=== PATIENT | male | born 1950 ===

== ENCOUNTER 2017-02-13 04:56 | Inpatient (IN) | payer MEDICARE, OTHER ==
--- NOTE | 2017-02-13 05:07 | C.PDOC ---
History Of Present Illness Patient was brought in via EMS after he was found unresponsive in his home. EMS found him with 4 respirations per minute; 2ml intranasal narcan was administered in the field with good response. Patient denies any drug use or physical complaints at this time. Time Seen by Provider: 02/13/17 05:02 Chief Complaint (Nursing): Substance Abuse History Per: EMS History/Exam Limitations: no limitations Onset/Duration Of Symptoms: Hrs Current Symptoms Are (Timing): Still Present Suicide/Self Injury Attempted (Context): None Modifying Factor(s): None Associated Symptoms: denies: Depression, Suicidal Thoughts, Suicidal Plan Involuntary Hold By: None Recent travel outside of the [place]: No Past Medical History Reviewed: Historical Data, Nursing Documentation, Vital Signs Vital Signs: Last Vital Signs Temp 98 F 02/13/17 05:06 Pulse 90 02/13/17 05:06 Resp 18 02/13/17 05:06 BP 130/73 02/13/17 05:06 Pulse Ox 100 02/13/17 06:35 - Medical History PMH: Back Problems, Bronchitis, Fibromyalgia Surgical History: No Surg Hx Family History: States: No Known Family Hx - Social History Hx Alcohol Use: No Hx Substance Use: No - Immunization History Hx Tetanus Toxoid Vaccination: No Hx Influenza Vaccination: No Hx Pneumococcal Vaccination: No Review Of Systems Constitutional: Negative for: Fever, Chills Gastrointestinal: Negative for: Nausea, Vomiting, Diarrhea Physical Exam - Physical Exam Appears: Non-toxic Skin: Warm, Dry Oral Mucosa: Moist Chest: Symmetrical, No Tenderness Cardiovascular: Rhythm Regular, No Murmur Respiratory: No Rales, No Rhonchi, No Wheezing Gastrointestinal/Abdominal: Soft, No Tenderness Neurological/Psych: Oriented x3 ED Course And Treatment - Laboratory Results Result Diagrams: 02/13/17 05:28 02/13/17 05:28 ECG: Interpreted By Me, Viewed By Me ECG Rhythm: Sinus Rhythm (66), 1st Degree HB, Nonspecific Changes O2 Sat by Pulse Oximetry: 100 Pulse Ox Interpretation: Normal - Radiology CXR: Interpreted by Me, Viewed By Me CXR Interpretation: No: Infiltrates, Fracture, Pnemothorax Disposition Discussed With : Zoe Georges Comment: accepted the pt on her service and took over the care at 6:32 AM Doctor Will See Patient In The: Hospital Counseled Patient/Family Regarding: Studies Performed, Diagnosis - Disposition Referrals: Non [facility]PH Provider, [Primary Care Provider] - Disposition: HOSPITALIZED Disposition Time: 06:33 Condition: FAIR Forms: [facility] (Icelandic) - POA Present On Arrival: None - Clinical Impression Clinical Impression: Syncope, Drug reaction, Arrhythmia - Scribe Statement The provider has reviewed the documentation as recorded by the Scribe Raheel Salinas All medical record entries made by the Scribe were at my direction and personally dictated by me. I have reviewed the chart and agree that the record accurately reflects my personal performance of the history, physical exam, medical decision making, and the department course for this patient. I have also personally directed, reviewed, and agree with the discharge instructions and disposition. Decision To Admit - Pt Status Changed To: Hospital Disposition Of: Inpatient - Admit Certification Admit to Inpatient:: After my assessment, the patient will require hospitalization for at least two midnights. This is because of the severity of symptoms shown, intensity of services needed, and/or the medical risk in this patient being treated as an outpatient. - InPatient: Physician Admission Certification: I certify that this patient requires 2 or more midnights of care for the following reason:: After my assessment, the patient will require hospitalization for at least two midnights. This is because of the severity of symptoms shown, intensity of services needed, and/or the medical risk in this patient being treated as an outpatient. - . Bed Request Type: Telemetry Admitting Physician: Zoe Georges Patient Diagnosis: Syncope, Drug reaction, Arrhythmia
[2017-02-13 05:33] LABS: BASO % 0.5 % (0.0-2.0); EOS # 0.1 K/uL (0.0-0.7); EOS % 1.4 % (0.0-4.0); HEMOGLOBIN 12.1 g/dL (12.0-18.0); LYMPH # 1.3 K/uL (1.0-4.3); LYMPH % 23.6 % (20.0-40.0); MEAN CELL VOLUME 90.8 fL (80.0-94.0); MEAN CORPUSCULAR HEMOGLOBIN 30.2 pg (27.0-31.0); MEAN CORPUSCULAR HGB CONC 33.3 g/dL (33.0-37.0); MEAN PLATELET VOLUME 7.5 fL (7.2-11.7); MONO # 0.5 K/uL (0.0-0.8); MONO % 10.3 % (0.0-10.0); NEUT # 3.4 K/uL (1.8-7.0); NEUT % 64.2 % (50.0-75.0); RBC 4.02 Mil/uL (4.40-5.90); RED CELL DISTRIBUTION WIDTH 12.6 % (11.5-14.5); WHITE BLOOD COUNT 5.3 K/uL (4.8-10.8)
[2017-02-13 05:38] LABS: BENZODIAZEPINES, UR NEGATIVE (NEGATIVE)
[2017-02-13 05:39] LABS: BARBITURATES, UR NEGATIVE (NEGATIVE)
[2017-02-13 05:42] LABS: OPIATES, UR NEGATIVE (NEGATIVE); PHENCYCLIDINE, UR NEGATIVE (NEGATIVE)
[2017-02-13 05:45] LABS: ALBUMIN 3.9 g/dL (3.5-5.0)
[2017-02-13 05:47] LABS: GFR AFRICAN-AMERICAN > 60; GFR NON-AFRICAN AMERICAN > 60
[2017-02-13 05:48] LABS: ALB/GLOB RATIO 1.4 (1.0-2.1); ALT/SGPT 27 U/L (21-72); AST/SGOT 14 U/L (17-59); BLOOD UREA NITROGEN 17 mg/dL (9-20); CALCIUM 8.1 mg/dl (8.6-10.4)
[2017-02-13 06:56] LABS: B-TYPE NATRIURETIC PEPTIDE 39.1 pg/mL (0-900)
--- NOTE | 2017-02-13 07:01 | CT ---
EXAM: CT Head Without Intravenous Contrast CLINICAL HISTORY: 66 years old, male; Pain; Headache; Additional info: Syncope TECHNIQUE: Axial computed tomography images of the head/brain without intravenous contrast. This CT exam was performed using one or more of the following dose reduction techniques: automated exposure control, adjustment of the mA and/or kV according to patient size, and/or use of iterative reconstruction technique. COMPARISON: No relevant prior studies available. FINDINGS: Brain: Mild atrophy. No intracranial hemorrhage. No mass. No definite edema. Ventricles: No hydrocephalus. Bones/joints: No acute fracture. Soft tissues: Unremarkable. Sinuses: No acute sinusitis. Mastoid air cells: Postsurgical changes of RIGHT mastoid. Orbits: Unremarkable as visualized. IMPRESSION: 1. No definite acute intracranial abnormality. Acute infarction may be CT occult within first 24 hours. If a focal deficit persists, consider followup CT or MRI for further evaluation. 2. Incidental/non-acute findings are described above.
--- NOTE | 2017-02-13 08:20 | RAD ---
PROCEDURE: CHEST RADIOGRAPH, 1 VIEW HISTORY: Shortness of breath COMPARISON: 06/02/2015 FINDINGS: LUNGS: Biapical pleural thickening with upper lobe granulomatous changes. Mild venous congestion. Patchy bibasilar airspace opacities with small bilateral pleural effusions. Scattered nodular densities in both lungs. PLEURA: As above. CARDIOVASCULAR: Normal. OSSEOUS STRUCTURES: No significant abnormalities. VISUALIZED UPPER ABDOMEN: Normal. OTHER FINDINGS: None. IMPRESSION: Biapical pleural thickening with upper lobe granulomatous changes. Mild venous congestion. Patchy bibasilar airspace opacities with small bilateral pleural effusions. Scattered nodular densities in both lungs.
[2017-02-13 08:26] LABS: FREE T4 1.06 ng/dL (0.78-2.19)
--- NOTE | 2017-02-13 16:21 | CP.PCM.HP ---
History of Present Illness - History of Present Illness History of Present Illness: pt doesnot know what happen but found himself in the hospital hx as per was uncocsios respond after given narcan Present on Admission - Present on Admission Any Indicators Present on Admission: No Review of Systems - Review of Systems Systems not reviewed;Unavailable: Acuity of Condition - Constitutional Constitutional: As Per HPI - EENT Eyes: As Per HPI Ears: As Per HPI Nose/Mouth/Throat: As Per HPI - Cardiovascular Cardiovascular: As Per HPI - Respiratory Respiratory: As Per HPI - Psychiatric Psychiatric: As Per HPI - Endocrine Endocrine: Cold Intolorance - Hematologic/Lymphatic Hematologic: As Per HPI Past Patient History - Infectious Disease Hx of Infectious Diseases: None - Past Medical History & Family History Past Medical History?: Yes - Past Social History Smoking Status: Former Smoker - CARDIAC Hx Cardiac Disorders: No Hx Hypercholesterolemia: No Hx Hypertension: No Other/Comment: denies - PULMONARY Hx Asthma: Yes Hx Bronchitis: No - NEUROLOGICAL Hx Neurological Disorder: No - HEENT Other/Comment: hx left eye sx- lazy eye - RENAL Hx Chronic Kidney Disease: No - ENDOCRINE/METABOLIC Hx Endocrine Disorders: No - HEMATOLOGICAL/ONCOLOGICAL Hx Blood Disorders: No - INTEGUMENTARY Hx Dermatological Problems: No - MUSCULOSKELETAL/RHEUMATOLOGICAL Hx Back Pain: Yes Hx Falls: No - GASTROINTESTINAL Hx Gastrointestinal Disorders: No - GENITOURINARY/GYNECOLOGICAL Hx Prostate Problems: Yes - PSYCHIATRIC Hx Psychophysiologic Disorder: No Hx Substance Use: No - SURGICAL HISTORY Hx Surgeries: Yes Hx Eye Surgery: Yes (left eye lazy eye) Other/Comment: ESOPHAGEAL SURGERY, RIGHT LAT UPPER BACK OLD INCISION LINE( [facility]) - ANESTHESIA Hx Anesthesia: Yes Hx Anesthesia Reactions: No Hx Malignant Hyperthermia: No Has any member of the family had a problem w/ anesthesia?: No Meds Allergies/Adverse Reactions: Allergies Allergy/AdvReac Type Severity Reaction Status Date / Time No Known Allergies Allergy Verified 02/13/17 05:04 Physical Exam - Constitutional Appears: Non-toxic - Head Exam Head Exam: NORMAL INSPECTION - Eye Exam Eye Exam: Normal appearance Pupil Exam: NORMAL ACCOMODATION - ENT Exam ENT Exam: Mucous Membranes Moist - Neck Exam Neck exam: Positive for: Full Rom - Respiratory Exam Respiratory Exam: Clear to Auscultation Bilateral, NORMAL BREATHING PATTERN - Cardiovascular Exam Cardiovascular Exam: REGULAR RHYTHM - GI/Abdominal Exam GI & Abdominal Exam: Normal Bowel Sounds - Rectal Exam Rectal Exam: NORMAL INSPECTION - Exam Exam: NORMAL INSPECTION External exam: NORMAL EXTERNAL EXAM Bimanual exam: NORMAL BIMANUAL EXAM - Extremities Exam Extremities exam: Positive for: normal inspection - Back Exam Back exam: NORMAL INSPECTION - Neurological Exam Neurological exam: Oriented x3 - Psychiatric Exam Psychiatric exam: Normal Affect - Skin Skin Exam: Normal Color Results - Vital Signs Recent Vital Signs: Last Vital Signs Temp 98.3 F 02/13/17 15:45 Pulse 55 L 02/13/17 15:45 Resp 18 02/13/17 15:45 BP 144/78 02/13/17 15:45 Pulse Ox 98 02/13/17 15:45 - Labs Result Diagrams: 02/13/17 05:28 02/13/17 05:28 Labs: Laboratory Results - last 24 hr 02/13/17 02/13/17 06:38 06:38 Troponin I < 0.0120 NT-Pro-B Natriuret Pep 39.1 Free T4 1.06 TSH 3rd Generation 3.69 Assessment & Plan - Assessment and Plan (Free Text) Assessment: ams loss of coscious Plan: as per orders Decision To Admit - Admit Certification Admit to Inpatient:: admit and psych consult and as per orders - . Bed Request Type: Regular
--- NOTE | 2017-02-13 22:09 | CP.PCM.CON ---
History of Present Illness - History of Present Illness History of Present Illness: Patient was brought in via EMS after he was found unresponsive in his home. EMS found him with 4 respirations per minute; 2ml intranasal narcan was administered in the field with good response. Patient denies any drug use or physical complaints at this time. He received a high dose of Tizanidine ( Zanaflex) 4 mg TID on that day , he said that he was also receiving a 2nd muscle relaxant, that is Flexeril 5mg QHS. He stayed not responsive for 45 minutes and his face shifted to the right transiently. His Urine Tox screen is negative Chief Complaint: Substance Abuse Denies: Depression, Suicidal Thoughts, Suicidal Plan, or recent travels outside the [facility]. Past Medical History Reviewed: Historical Data, Nursing Documentation, Vital Signs H/o Cervical and LS Radiculopathy treated by Dr Marjan Morillo He received a high dose of Tizanidine ( Zanaflex) on that day H/o Being operated 3 times for Right side Mastoiditis and he says he has an implant Vital Signs: Last Vital Signs Temp 98 F 02/13/17 05:06 Pulse 90 02/13/17 05:06 Resp 18 02/13/17 05:06 BP 130/73 02/13/17 05:06 Pulse Ox 100 02/13/17 06:35 - Medical History PMH: Back Problems, Bronchitis, Fibromyalgia Surgical History: No Surg Hx Family History: States: No Known Family Hx - Social History Hx Alcohol Use: No Hx Substance Use: No - Immunization History Hx Tetanus Toxoid Vaccination: No Hx Influenza Vaccination: No Hx Pneumococcal Vaccination: No Review Of Systems Constitutional: Negative for: Fever, Chills Gastrointestinal: Negative for: Nausea, Vomiting, Diarrhea Abnormal ECG Sinus rhythm with 1st degree AV block Septal infarct, age undetermined IMPRESSION of CT Brain: Mastoid air cells: Postsurgical changes of RIGHT mastoid. Orbits: Unremarkable as visualized. 1. No definite acute intracranial abnormality. Acute infarction may be CT occult within first 24 hours. If a focal deficit persists, consider followup CT or MRI for further evaluation. Negative Urine Toxicology Screen. Past Patient History - Infectious Disease Hx of Infectious Diseases: None - Past Medical History & Family History Past Medical History?: Yes - Past Social History Smoking Status: Former Smoker - CARDIAC Hx Cardiac Disorders: No Hx Hypercholesterolemia: No Hx Hypertension: No Other/Comment: denies - PULMONARY Hx Asthma: Yes Hx Bronchitis: No - NEUROLOGICAL Hx Neurological Disorder: No - HEENT Other/Comment: hx left eye sx- lazy eye - RENAL Hx Chronic Kidney Disease: No - ENDOCRINE/METABOLIC Hx Endocrine Disorders: No - HEMATOLOGICAL/ONCOLOGICAL Hx Blood Disorders: No - INTEGUMENTARY Hx Dermatological Problems: No - MUSCULOSKELETAL/RHEUMATOLOGICAL Hx Back Pain: Yes Hx Falls: No - GASTROINTESTINAL Hx Gastrointestinal Disorders: No - GENITOURINARY/GYNECOLOGICAL Hx Prostate Problems: Yes - PSYCHIATRIC Hx Psychophysiologic Disorder: No Hx Substance Use: No - SURGICAL HISTORY Hx Surgeries: Yes Hx Eye Surgery: Yes (left eye lazy eye) Other/Comment: ESOPHAGEAL SURGERY, RIGHT LAT UPPER BACK OLD INCISION LINE( [facility]) - ANESTHESIA Hx Anesthesia: Yes Hx Anesthesia Reactions: No Hx Malignant Hyperthermia: No Has any member of the family had a problem w/ anesthesia?: No Meds Allergies/Adverse Reactions: Allergies Allergy/AdvReac Type Severity Reaction Status Date / Time No Known Allergies Allergy Verified 02/13/17 05:04 - Medications Medications: Current Medications Acetaminophen (Tylenol 325mg Tab) 650 mg PO Q6 PRN PRN Reason: Pain, moderate (4-7) Enoxaparin Sodium (Lovenox) 40 mg SC DAILY [facility] Pantoprazole Sodium (Protonix Ec Tab) 40 mg PO DAILY [facility] Pneumococcal Polyvalent Vaccine (Pneumovax 23 Vaccine) 0.5 ml IM .ONCE ONE Stop: 02/16/17 22:01 Terazosin HCl (Hytrin) 10 mg PO HS [facility] Physical Exam - Neurological Exam Additional comments: Tall and appropriate weight, Walker man. 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 Mental status: Normal, awake alert oriented x 3 cranial Nerves II to XII: no deficits Motor: Normal tone, power muscle bulk Limited neck movements, positive lassegue test bilaterally DTR 0/4 Plantars are down going Sensory: no deficits Cerebellar: normal FNT Results - Vital Signs Recent Vital Signs: Last Vital Signs Temp 98.6 F 02/13/17 20:18 Pulse 63 02/13/17 20:18 Resp 20 02/13/17 20:18 BP 135/82 02/13/17 20:18 Pulse Ox 96 02/13/17 20:18 - Labs Result Diagrams: 02/13/17 05:28 02/13/17 05:28 Labs: Laboratory Results - last 24 hr 02/13/17 02/13/17 02/13/17 06:38 06:38 16:05 Troponin I < 0.0120 < 0.0120 NT-Pro-B Natriuret Pep 39.1 Free T4 1.06 TSH 3rd Generation 3.69 Assessment & Plan (1) Arrhythmia Status: Acute (2) Syncope Assessment and Plan: R/O Seizures Status: Acute (3) Bronchitis Status: Acute (4) Medication side effect Assessment and Plan: High dose of Tizanidine 9Zanaflex) 4mg TID might cause AMS and seizures like symptoms D/C All muscle Relaxants Status: Acute (5) Cervical radiculopathy Status: Acute
--- NOTE | 2017-02-14 11:09 | CP.PCM.PN ---
Subjective - Date & Time of Evaluation Date of Evaluation: 02/14/17 Time of Evaluation: 11:07 - Subjective Subjective: pt weeke dizzy unbalanced gaite Objective - Vital Signs/Intake and Output Vital Signs (last 24 hours): Temp Pulse Resp BP Pulse Ox 98.2 F 62 20 135/79 97 02/14/17 08:15 02/14/17 08:15 02/14/17 08:15 02/14/17 08:15 02/14/17 08:15 Intake and Output: 02/14/17 02/14/17 06:59 18:59 Intake Total 730 Output Total 300 Balance 430 - Medications Medications: Current Medications Acetaminophen (Tylenol 325mg Tab) 650 mg PO Q6 PRN PRN Reason: Pain, moderate (4-7) Calcium/Vitamin D (Oscal-D 250 Mg-125 Units Tab) 1 tab PO DAILY [facility] Enoxaparin Sodium (Lovenox) 40 mg SC DAILY [facility] Pantoprazole Sodium (Protonix Ec Tab) 40 mg PO DAILY [facility] Pneumococcal Polyvalent Vaccine (Pneumovax 23 Vaccine) 0.5 ml IM .ONCE ONE Stop: 02/16/17 22:01 Terazosin HCl (Hytrin) 10 mg PO HS [facility] Last Admin: 02/13/17 21:58 Dose: 10 mg - Constitutional Appears: Non-toxic - Head Exam Head Exam: NORMAL INSPECTION - Eye Exam Eye Exam: Normal appearance Pupil Exam: NORMAL ACCOMODATION - ENT Exam ENT Exam: Mucous Membranes Moist - Neck Exam Neck Exam: Normal Inspection - Respiratory Exam Respiratory Exam: Clear to Ausculation Bilateral - Cardiovascular Exam Cardiovascular Exam: REGULAR RHYTHM - GI/Abdominal Exam GI & Abdominal Exam: Soft - Exam External exam: NORMAL EXTERNAL EXAM - Extremities Exam Extremities Exam: Full ROM - Neurological Exam Neurological Exam: Abnormal Gait, Alert, Oriented x3 - Psychiatric Exam Psychiatric exam: Normal Affect - Skin Skin Exam: Dry, Normal Color Assessment and Plan - Assessment and Plan (Free Text) Assessment: dizziness unbalanced gaite weeke s/p loss of conscious Plan: as per orders
[2017-02-14] MEDS: Calcium-Vit D 250 mg-125 Units Tab UD PO SCH (12:15)
[2017-02-14] MEDS: Pantoprazole 40 mg EC Tab PO SCH (12:41)
[2017-02-14] MEDS: Enoxaparin 40 mg Syringe SC SCH (12:41)
--- NOTE | 2017-02-14 19:02 | CP.PCM.PN ---
Subjective - Date & Time of Evaluation Date of Evaluation: 02/14/17 Time of Evaluation: 18:56 - Subjective Subjective: Patient is suffering from unsteady gait, blurry vision and is not suffering from any new Syncopal spells. His problems started after he received a generous dose of Tizanidine 4 mg TID. Muscle Relaxants are on hold. They will not be restarted at this high dose, if still needed. Seizures are to be ruled out, CVA is a possibility, a cardiac condition is to be entertained. He is fully awake, oriented X 3. Objective - Vital Signs/Intake and Output Vital Signs (last 24 hours): Temp Pulse Resp BP Pulse Ox 97.8 F 61 18 152/88 H 97 02/14/17 15:33 02/14/17 15:33 02/14/17 15:33 02/14/17 15:33 02/14/17 15:33 Intake and Output: 02/14/17 02/14/17 06:59 18:59 Intake Total 730 Output Total 300 500 Balance 430 -500 - Medications Medications: Current Medications Acetaminophen (Tylenol 325mg Tab) 650 mg PO Q6 PRN PRN Reason: Pain, moderate (4-7) Calcium/Vitamin D (Oscal-D 250 Mg-125 Units Tab) 1 tab PO DAILY [facility] Last Admin: 02/14/17 12:15 Dose: 1 tab Enoxaparin Sodium (Lovenox) 40 mg SC DAILY [facility] Last Admin: 02/14/17 12:41 Dose: 40 mg Pantoprazole Sodium (Protonix Ec Tab) 40 mg PO DAILY [facility] Last Admin: 02/14/17 12:41 Dose: 40 mg Pneumococcal Polyvalent Vaccine (Pneumovax 23 Vaccine) 0.5 ml IM .ONCE ONE Stop: 02/16/17 22:01 Terazosin HCl (Hytrin) 10 mg PO HS [facility] Last Admin: 02/13/17 21:58 Dose: 10 mg Assessment and Plan (1) Arrhythmia Status: Acute (2) Syncope Status: Acute (3) Bronchitis Status: Acute (4) Medication side effect Status: Acute (5) Cervical radiculopathy Status: Acute
[2017-02-15 07:39] LABS: HEMOGLOBIN 13.5 g/dL (12.0-18.0); MEAN CELL VOLUME 90.8 fL (80.0-94.0); MEAN PLATELET VOLUME 7.7 fL (7.2-11.7); RBC 4.5 Mil/uL (4.40-5.90); RED CELL DISTRIBUTION WIDTH 12.8 % (11.5-14.5); WHITE BLOOD COUNT 6.2 K/uL (4.8-10.8)
[2017-02-15] MEDS: Enoxaparin 40 mg Syringe SC SCH (11:00)
[2017-02-15] MEDS: Pantoprazole 40 mg EC Tab PO SCH (11:00)
--- NOTE | 2017-02-15 11:10 | MRI ---
PROCEDURE: MRI BRAIN WITHOUT CONTRAST HISTORY: syncope COMPARISON: Head CT 02/13/2017 TECHNIQUE: Multiplanar, multisequence MR images of the brain were obtained without intravenous contrast enhancement. FINDINGS: HEMORRHAGE: None DWI: No evidence of an acute or early subacute infarction. BRAIN PARENCHYMA: There are a few scattered ,punctate long TR hyperintensities identified at the bilateral frontal lobes (subcortical) compatible with chronic microangiopathy. Limited diffuse cerebral atrophy is also identified. The midline brain and appears diffusely unremarkable. No mass effect is identified. VENTRICLES: Unremarkable. No hydrocephalus. CRANIUM: Unremarkable. ORBITS: Grossly unremarkable. PARANASAL SINUSES/MASTOIDS: Right mastoiditis is incidentally noted. VASCULAR SYSTEM: Skull base flow voids intact. OTHER FINDINGS: None. IMPRESSION: 1. No definite acute intracranial findings. 2. Limited age-related neuro degenerate changes are reiterated the current examination. 3. Right mastoiditis identified.
[2017-02-15] MEDS: Calcium-Vit D 250 mg-125 Units Tab UD PO SCH (12:03)
--- NOTE | 2017-02-15 16:52 | CP.PCM.PN ---
Subjective - Date & Time of Evaluation Date of Evaluation: 02/15/17 Time of Evaluation: 16:50 - Subjective Subjective: sob ocasionaly abn chest xray Objective - Vital Signs/Intake and Output Vital Signs (last 24 hours): Temp Pulse Resp BP Pulse Ox 98.5 F 68 20 103/70 95 02/15/17 16:09 02/15/17 16:09 02/15/17 16:09 02/15/17 16:09 02/15/17 16:09 Intake and Output: 02/15/17 02/15/17 06:59 18:59 Intake Total 1000 Balance 1000 - Medications Medications: Current Medications Acetaminophen (Tylenol 325mg Tab) 650 mg PO Q6 PRN PRN Reason: Pain, moderate (4-7) Last Admin: 02/14/17 20:43 Dose: 650 mg Calcium/Vitamin D (Oscal-D 250 Mg-125 Units Tab) 1 tab PO DAILY [facility] Last Admin: 02/15/17 12:03 Dose: 1 tab Enoxaparin Sodium (Lovenox) 40 mg SC DAILY [facility] Last Admin: 02/15/17 11:00 Dose: 40 mg Pantoprazole Sodium (Protonix Ec Tab) 40 mg PO DAILY [facility] Last Admin: 02/15/17 11:00 Dose: 40 mg Pneumococcal Polyvalent Vaccine (Pneumovax 23 Vaccine) 0.5 ml IM .ONCE ONE Stop: 02/16/17 22:01 Terazosin HCl (Hytrin) 10 mg PO [facility] Last Admin: 02/14/17 22:05 Dose: 10 mg - Labs Labs: 02/15/17 07:20 - Constitutional Appears: Non-toxic - Head Exam Head Exam: NORMAL INSPECTION - Eye Exam Eye Exam: Normal appearance Pupil Exam: NORMAL ACCOMODATION - ENT Exam ENT Exam: Normal Exam - Neck Exam Neck Exam: Full ROM - Respiratory Exam Respiratory Exam: Decreased Breath Sounds - GI/Abdominal Exam GI & Abdominal Exam: Normal Bowel Sounds - Rectal Exam Rectal Exam: NORMAL INSPECTION - Exam Exam: NORMAL INSPECTION - Back Exam Back Exam: NORMAL INSPECTION - Neurological Exam Neurological Exam: Normal Gait - Psychiatric Exam Psychiatric exam: Normal Affect - Skin Skin Exam: Normal Color Assessment and Plan - Assessment and Plan (Free Text) Assessment: s/p syncopesob r/o granullomtous lung disease Plan: ct chest pulmonary consultation
--- NOTE | 2017-02-15 17:25 | CT ---
PROCEDURE: CT Chest without contrast HISTORY: Granulomatous lesion COMPARISON: 02/13/2017 chest x-ray. TECHNIQUE: Contiguous axial images were obtained through the chest without intravenous contrast enhancement. Sagittal and coronal reconstructions were performed. Radiation dose (DLP): 816.36 mGy-cm. This CT exam was performed using one or more of the following dose reduction techniques: Automated exposure control, adjustment of the mA and/or kV according to patient size, and/or use of iterative reconstruction technique. FINDINGS: LUNGS: Hyperinflation, manifestations of COPD. No active pulmonary disease. Biapical scarring. No suspicious pulmonary nodules or masses. MEDIASTINUM: Unremarkable thoracic aorta. No aneurysm. Normal sized heart. Main pulmonary artery unremarkable. No vascular congestion. No lymphadenopathy. PLEURA: No pleural fluid. No pneumothorax. BONES: No fracture. No destructive lesion. UPPER ABDOMEN: Grossly unremarkable. OTHER FINDINGS: None. IMPRESSION: No significant or acute findings to account for/ related to the clinical presentation. Additional benign and/or incidental findings described above.
--- NOTE | 2017-02-15 20:58 | CON ---
DATE: 02/15/2017 PSYCHIATRIC CONSULTATION CHIEF COMPLAINT AND REASON FOR CONSULTATION: The patient is referred by Dr. Georges for evaluation. Patient passed out at home and also possible drug reaction, patient diagnosed of syncope. HISTORY OF PRESENT ILLNESS: This is a case of 66-year-old male of [place] descent who lives with his family. Patient was brought in by EMS after he was found unresponsive at home. Patient was given Narcan and improved, but patient referred by Dr. Georges for evaluation for possible drug interaction. Patient reports that he has been taking Flexeril at home 5 mg daily because he has some back problems and also has been taking Benadryl 25 mg a day because he has trouble sleeping. Patient has been taking Flexeril and Benadryl p.r.n. for a year; however, patient has been followed by Dr. Morillo of pain management doctor who recently added Zanaflex, patient was supposed to take it 2 or 3 times a day, but the patient states that when he started taking it, he was having some problems with staying awake and having some feeling of dizzy. Patient stated it is the second night when he took the Zanaflex together with Flexeril and the Benadryl, the patient remembers he was trying to go to his bed and tried to turn off the computer and passed out. Patient was brought in here. Mental status-mclaughlin, patient seems to be much better and is back to his normal. He had an MRI of the brain done and also CAT scan of the head and was seen by the neurologist and seems to have no signs of acute intracranial injury. Patient was seen today for evaluation. PAST PSYCH HISTORY: Denies any. ALLERGIES: NO KNOWN ALLERGIES. PAST MEDICAL HISTORY: Patient has history of cervical radiculopathy, back problems, syncope, arrhythmia, bronchitis. SOCIAL HISTORY: Born and raised in [place]. He lives with his . 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 CURRENT MEDICATIONS: List of current medications that the patient is taking, the patient is on Hytrin, Lovenox, Protonix, and Tylenol. PHYSICAL EXAMINATION: VITAL SIGNS: Temperature is 98.8, pulse rate 65, blood pressure is 118/66, respirations 20, and oxygen saturation 96%. GENERAL: Patient is alert and oriented x3, seen in his room, much better. SKIN: No diaphoresis. HEENT: No headache, no dizziness. NECK: Supple. RESPIRATORY: Dyspnea. CARDIOVASCULAR: No chest pain. GASTROINTESTINAL: He is eating well. EXTREMITIES: Patient moves extremities. MUSCULOSKELETAL: Still complaining of back pain. NEUROLOGICAL: Alert and oriented x3. GENITOURINARY: No dysuria. LABORATORY DATA: Review of his labs, patient's creatinine 0.8, BUN is 17, TSH is 2.38, urine drug screen is negative. MENTAL STATUS EXAMINATION: Elderly male of [place] descent, oriented x3. Speech is spontaneous. Affect is reactive. Mood is calm. Thought process coherent. Thought content, no gross psychosis, no suicidal or hallucination ideation. Attention and memory seem to be fair. Insight and judgement fair. Impulse control is fair. IMPRESSION: Metabolic encephalopathy secondary to excessive intake of medications with high anticholinergic side effects. Patient is taking Zanaflex, Flexeril and Benadryl. All these medicines have very strong anticholinergic side effects with acute confusional changes and syncope, especially in a man who is an elderly, which is much improved at this time. PLAN AND RECOMMENDATION: The patient is seen, medications reviewed. We will keep patient off his medications. Continue treatment plan as outlined. Patient is seen by Dr. Welsh for neuro evaluation. Patient is advised to follow up with Dr. Morillo and also to discuss his medication for his back pain. Patient is advised not to take medication, especially polypharmacy medication that has strong anticholinergic side effects which includes delirium as a side effect. Jimbo Bates MD [facility]athie
--- NOTE | 2017-02-16 00:04 | CP.PCM.PN ---
Subjective - Date & Time of Evaluation Date of Evaluation: 02/15/17 Time of Evaluation: 20:00 - Subjective Subjective: No further syncopal spells. Patient is having a consultation for abnormal CT Chest It is believed that his condition is related to a reaction to a generous dose of Zanaflex (Tizanidine) Patient is still unstable and needs more care. Objective - Vital Signs/Intake and Output Vital Signs (last 24 hours): Temp Pulse Resp BP Pulse Ox 98.5 F 72 20 128/71 95 02/15/17 16:09 02/15/17 22:17 02/15/17 16:09 02/15/17 22:17 02/15/17 16:09 - Medications Medications: Current Medications Acetaminophen (Tylenol 325mg Tab) 650 mg PO Q6 PRN PRN Reason: Pain, moderate (4-7) Last Admin: 02/14/17 20:43 Dose: 650 mg Calcium/Vitamin D (Oscal-D 250 Mg-125 Units Tab) 1 tab PO DAILY [facility] Last Admin: 02/15/17 12:03 Dose: 1 tab Enoxaparin Sodium (Lovenox) 40 mg SC DAILY [facility] Last Admin: 02/15/17 11:00 Dose: 40 mg Pantoprazole Sodium (Protonix Ec Tab) 40 mg PO DAILY [facility] Last Admin: 02/15/17 11:00 Dose: 40 mg Pneumococcal Polyvalent Vaccine (Pneumovax 23 Vaccine) 0.5 ml IM .ONCE ONE Stop: 02/16/17 22:01 Terazosin HCl (Hytrin) 10 mg PO [facility] Last Admin: 02/15/17 22:17 Dose: 10 mg - Labs Labs: 02/15/17 07:20 Assessment and Plan (1) Arrhythmia Status: Acute (2) Syncope Status: Acute (3) Bronchitis Status: Acute (4) Medication side effect Status: Acute (5) Cervical radiculopathy Status: Acute
[2017-02-16 09:01] VITALS: RESP 20
[2017-02-16] MEDS: Enoxaparin 40 mg Syringe SC SCH (09:25)
[2017-02-16] MEDS: Calcium-Vit D 250 mg-125 Units Tab UD PO SCH (09:29)
[2017-02-16] MEDS: Pantoprazole 40 mg EC Tab PO SCH (09:30)
--- NOTE | 2017-02-16 12:08 | CP.PCM.PN ---
Subjective - Date & Time of Evaluation Date of Evaluation: 02/16/17 Time of Evaluation: 12:06 - Subjective Subjective: pt feels ok no dizzines no seizers seen by pulmonary and antoniod fo d/c home today Objective - Vital Signs/Intake and Output Vital Signs (last 24 hours): Temp Pulse Resp BP Pulse Ox 98.5 F 69 20 120/70 95 02/16/17 08:00 02/16/17 08:00 02/16/17 08:00 02/16/17 08:00 02/16/17 08:00 Intake and Output: 02/16/17 02/16/17 06:59 18:59 Intake Total 480 Balance 480 - Medications Medications: Current Medications Acetaminophen (Tylenol 325mg Tab) 650 mg PO Q6 PRN PRN Reason: Pain, moderate (4-7) Last Admin: 02/16/17 09:27 Dose: 650 mg Calcium/Vitamin D (Oscal-D 250 Mg-125 Units Tab) 1 tab PO DAILY [facility] Last Admin: 02/16/17 09:29 Dose: 1 tab Enoxaparin Sodium (Lovenox) 40 mg SC DAILY [facility] Last Admin: 02/16/17 09:25 Dose: 40 mg Pantoprazole Sodium (Protonix Ec Tab) 40 mg PO DAILY [facility] Last Admin: 02/16/17 09:30 Dose: 40 mg Pneumococcal Polyvalent Vaccine (Pneumovax 23 Vaccine) 0.5 ml IM .ONCE ONE Stop: 02/16/17 22:01 Terazosin HCl (Hytrin) 10 mg PO [facility] Last Admin: 02/15/17 22:17 Dose: 10 mg Tramadol HCl (Ultram) 50 mg PO TID PRN PRN Reason: moderate pain - Labs Labs: 02/15/17 07:20 - Constitutional Appears: Non-toxic - Head Exam Head Exam: NORMAL INSPECTION - Eye Exam Eye Exam: Normal appearance Pupil Exam: NORMAL ACCOMODATION - ENT Exam ENT Exam: Mucous Membranes Moist - Neck Exam Neck Exam: Normal Inspection - Respiratory Exam Respiratory Exam: NORMAL BREATHING PATTERN - Cardiovascular Exam Cardiovascular Exam: REGULAR RHYTHM - GI/Abdominal Exam GI & Abdominal Exam: Normal Bowel Sounds - Rectal Exam Rectal Exam: NORMAL INSPECTION - Exam Exam: NORMAL INSPECTION External exam: NORMAL EXTERNAL EXAM - Extremities Exam Extremities Exam: Normal Inspection - Back Exam Back Exam: NORMAL INSPECTION - Neurological Exam Neurological Exam: Normal Gait, Oriented x3 - Psychiatric Exam Psychiatric exam: Normal Mood - Skin Skin Exam: Normal Color Assessment and Plan - Assessment and Plan (Free Text) Assessment: s/p seizer rs will d/c f/u by his md cont med Plan: discharge
--- NOTE | 2017-02-16 14:58 | VASCLAB ---
PROCEDURE: HISTORY: Syncope COMPARISON: None available. TECHNIQUE: Grayscale and duplex Doppler evaluation of the cervical carotid and vertebral arteries were performed. The common carotid, carotid bifurcations and cervical Internal Carotid Artery (ICA) and proximal External Carotid Artery (ECA) were evaluated. The vertebral arteries were evaluated for gross patency and flow direction. Report prepared by ROSS Castano FINDINGS: RIGHT CAROTID ARTERIES: 1. Common Carotid Artery: No significant focal plaque formation of the right common carotid artery. Maximum Peak Systolic velocity: 99 cm/sec: End-diastolic velocity 18 cm/sec. 2. Carotid Bifurcation: plaque formation. Maximum Peak Systolic velocity: 73 cm/sec: End-diastolic velocity 14 cm/sec. 3. Internal Carotid Artery: Plaque description: 3.1. Proximal Segment: Peak systolic velocity 53 cm/sec: End-diastolic velocity 21 cm/sec - % stenosis 0-15% 3.2. Middle Segment: Peak systolic velocity 64 cm/sec: End-diastolic velocity 23 cm/sec - % stenosis 0-15% 3.3. Distal Segment: Peak systolic velocity 89 cm/sec: End-diastolic velocity 33 cm/sec - % stenosis 0-15% 4. External Carotid Artery: No significant focal plaque formation. Peak systolic velocity 76 cm/sec 5. ICA/CCA Ratio: 1.3 LEFT CAROTID ARTERIES: 1. Common Carotid Artery: No significant focal plaque formation of the left common carotid artery. Maximum Peak Systolic velocity: 107 cm/sec: End-diastolic velocity 25 cm/sec. 2. Carotid Bifurcation: plaque formation. Maximum Peak Systolic velocity: 70 cm/sec: End-diastolic velocity 16 cm/sec. 3. Internal Carotid Artery: Plaque description: 3.1. Proximal Segment: Peak systolic velocity 87 cm/sec: End-diastolic velocity 30 cm/sec - % stenosis 0-15% 3.2. Middle Segment: Peak systolic velocity 99 cm/sec: End-diastolic velocity 37 cm/sec - % stenosis 0-15% 3.3. Distal Segment: Peak systolic velocity 89 cm/sec: End-diastolic velocity 39 cm/sec - % stenosis 0-15% 4. External Carotid Artery: No significant focal plaque formation. Peak systolic velocity 77 cm/sec 5. ICA/CCA Ratio: 1.1 VERTEBRAL ARTERIES: 1. Right Vertebral Artery: The right vertebral artery flow direction is antegrade. 2. Left Vertebral Artery: The left vertebral artery flow direction is antegrade. OTHER FINDINGS: 1. Right Brachial Blood pressure: 135 mmHg. 2. Left Brachial Blood pressure: 130 mmHg. IMPRESSION: RIGHT: Duplex scan does not suggest hemodynamically significant stenosis of the right extracranial carotid arteries. LEFT: Duplex scan does not suggest hemodynamically significant stenosis of the left extracranial carotid arteries.
[2017-02-16 15:37] VITALS: BP 130/77; TEMP 98.3; O2SAT 96
--- NOTE | 2017-02-16 15:46 | PN ---
DATE: 02/16/2017 SUBJECTIVE: The patient is seen. The patient's mental status much improved, close to baseline. However, when seen today, he is complaining of pain in his right and left shoulder, more on the right side. The patient was asking for pain medications for it. The patient has been off his muscle relaxant which causes confusion. PHYSICAL EXAMINATION: GENERAL: The patient is alert and oriented x3, seen in his room, talking to the phone. VITAL SIGNS: Temperature is 98.5, pulse is 69, blood pressure is 120/70, respirations 20, oxygen saturation is 95%. SKIN: No diaphoresis. HEENT: No headache. No dizziness. NECK: Supple. RESPIRATORY: No dyspnea. CARDIOVASCULAR: No chest pain. GASTROINTESTINAL: He is eating better. MUSCULOSKELETAL: Pain in right and left shoulder pain. The patient has a history of cervical radiculopathy. EXTREMITIES: No tremors. NEUROLOGIC: Alert and oriented x3. GENITOURINARY: No urinary problems. MENTAL STATUS EXAM: Elderly male who looks stated age, oriented x3, conversing in Cameroonian. Affect is reactive. Mood is calm. Thought process is coherent. Thought content, patient is asking for some pain medications for his shoulder. No psychosis. No suicidal or homicidal ideation. Attention and memory seems to be fair. Insight and judgement is fair. Impulse control is fair. IMPRESSION: Delirium as well as metabolic encephalopathy, drug induced secondary to excessive intake of medication with high anticholinergic side effect. The patient took Zanaflex, Flexeril, and Benadryl, much improved. PLAN AND RECOMMENDATIONS: The patient is seen, medications reviewed. We will keep patient off muscle relaxant for now, but the patient is complaining of pain. He may take some tramadol p.r.n. for pain though as the patient is only taking Tylenol, the patient has history of cervical radiculopathy. Jimbo Bates MD
[2017-02-16] MEDS ORDERED: Aluminum Hydroxide/Magnesium Hydroxide Susp (30 mL) PO ONE (15:55)
--- NOTE | 2017-02-16 18:42 | CP.PCM.PN ---
Subjective - Date & Time of Evaluation Date of Evaluation: 02/16/17 Time of Evaluation: 12:10 - Subjective Subjective: Patient is suffering from delirium due to ingestion of multiple Muscle Relaxants. No further syncopal spells. He is doing better but is not well focused or able to walk properly. He is suffering from pain and is receiving pain medicine as Tramadol. Negative Carotid Doppler bilaterally. MRI Brain is showing similar findings as the CT Brain, Right Mastoiditis, IMPRESSION of MRI Brain: 1. No definite acute intracranial findings. 2. Limited age-related neuro degenerate changes are reiterated the current examination. 3. Right mastoiditis identified. CT Chest shows bilateral COPD, no acute findings. He is to be discharged home. Objective - Vital Signs/Intake and Output Vital Signs (last 24 hours): Temp Pulse Resp BP Pulse Ox 98.3 F 62 20 130/77 96 02/16/17 15:34 02/16/17 15:34 02/16/17 15:34 02/16/17 15:34 02/16/17 15:34 Intake and Output: 02/16/17 02/16/17 06:59 18:59 Intake Total 480 Balance 480 - Medications Medications: Current Medications Acetaminophen (Tylenol 325mg Tab) 650 mg PO Q6 PRN PRN Reason: Pain, moderate (4-7) Last Admin: 02/16/17 09:27 Dose: 650 mg Calcium/Vitamin D (Oscal-D 250 Mg-125 Units Tab) 1 tab PO DAILY [facility] Last Admin: 02/16/17 09:29 Dose: 1 tab Enoxaparin Sodium (Lovenox) 40 mg SC DAILY [facility] Last Admin: 02/16/17 09:25 Dose: 40 mg Pantoprazole Sodium (Protonix Ec Tab) 40 mg PO DAILY [facility] Last Admin: 02/16/17 09:30 Dose: 40 mg Pneumococcal Polyvalent Vaccine (Pneumovax 23 Vaccine) 0.5 ml IM .ONCE ONE Stop: 02/16/17 22:01 Terazosin HCl (Hytrin) 10 mg PO HS [facility] Last Admin: 02/15/17 22:17 Dose: 10 mg Tramadol HCl (Ultram) 50 mg PO TID PRN PRN Reason: moderate pain - Labs Labs: 02/15/17 07:20 Assessment and Plan (1) Arrhythmia Status: Acute (2) Syncope Status: Acute (3) Bronchitis Status: Acute (4) Medication side effect Assessment & Plan: Muscle relaxants overdose. Zanaflex, Flexeril Status: Acute (5) Cervical radiculopathy Status: Acute
--- NOTE | 2017-02-16 19:15 | CARD ---
APPROVED REPORT EXAM: Two-dimensional and M-mode echocardiogram with Doppler and color Doppler. Other Information Quality : GoodRhythm : NSR INDICATION Syncope M-Mode DIMENSIONS RVDd2.15 (2.1-3.2cm)Left Atrium (MM)2.90 (2.5-4.0cm) IVSd1.20 (0.7-1.1cm)Aortic Root3.35 (2.2-3.7cm) LVDd5.63 (4.0-5.6cm)Aortic Cusp Exc.2.25 (1.5-2.0cm) PWd0.75 (0.7-1.1cm)FS (%) 34 % LVDs3.71 (2.0-3.8cm)LVEF (%)62 (>50%) Mitral Valve MV E Hxyxnkkl03.6cm/sMV A Ioaoiguj03.3cm/sE/A ratio0.9 TDI E/Lateral E'0.0E/Medial E'0.0 Tricuspid Valve TR Peak [id number]/sTR Peak Gr.[id number] <Conclusion> normal size la,lv & ra rv. normal lv wall motion,thickness,systolic & diastolic funciton with lvef of 60-65%. normal aortic,mitral,tv & pv. trace mr,ai & pi.mild to moderate tr with normal pulmonary systolic pressures of 23 mm of hg., no pericardial effusion. normal size aortic root & ivc.
[2017-02-16 20:59] VITALS: PULSE 59
[2017-02-16] MEDS ORDERED: Pneumococcal 23-Valent Vaccine IM ONE (22:00)
--- NOTE | 2017-02-17 06:27 | CARD ---
APPROVED REPORT EKG Measurement Heart [id number] <Conclusion> Sinus rhythm with 1st degree AV block Septal infarct, age undetermined Abnormal ECG
--- NOTE | 2017-02-17 08:38 | CON ---
DATE: 02/16/2017 HISTORY OF PRESENT ILLNESS: A 66 year old male admitted to hospital complaining of syncope. The patient had followup CAT scan with light scarring of the lungs on the X ray. The patient quit smoking 30 years ago. The patient has asthma. PHYSICAL EXAMINATION: GENERAL: The patient is awake, alert, and oriented. VITAL SIGNS: Temperature 98, pulse 90. HEENT: Within normal limits. NECK: Supple. CHEST: Symmetrical. HEART: Regular. ABDOMEN: Soft. EXTREMITIES: No edema. ASSESSMENT AND PLAN: CAT scan, very tiny scarring in the apex that *------*. Slight scarring of the apex is all around with no clinical findings. At this point, *------*. At this point, the patient can be safely discharged, followup as an outpatient *------*. Efraín Martinez MD
== END 2017-02-16 19:22 | disposition home or self-care (01) | DRG 312 ==
LOC: SUPCPDRO 04:56 → C.ER 04:56 → C.9E 06:32 → C.6T 07:35
PROVIDERS: ADMIT Internal Medicine; ATTEND Internal Medicine
DX: R55 Syncope and collapse (principal); G93.41 Metabolic encephalopathy; T42.8X5A Adverse effect of antiparkinsonism drugs and other central muscle-tone depressants, initial encounter; H70.91 Unspecified mastoiditis, right ear; J44.9 Chronic obstructive pulmonary disease, unspecified; M54.12 Radiculopathy, cervical region; M79.7 Fibromyalgia; J45.909 Unspecified asthma, uncomplicated; I49.9 Cardiac arrhythmia, unspecified; J40 Bronchitis, not specified as acute or chronic; Y92.009 Unspecified place in unspecified non-institutional (private) residence as the place of occurrence of the external cause; Z87.891 Personal history of nicotine dependence

== ENCOUNTER 2017-06-24 13:51 | Emergency (ER) | payer MEDICARE, OTHER ==
[2017-06-24 13:56] VITALS: RESP 20
[2017-06-24] MEDS ORDERED: Acetaminophen-Codeine 300/30 mg Tab PO STA (14:11)
--- NOTE | 2017-06-24 14:16 | C.PDOC ---
History Of Present Illness 67yo male, presents to ED with complaints of right shoulder pain, present for the past couple months. He denies any trauma or injuries to his shoulder and states the pain is worse with movement. Of note, patient is right hand dominant. States he has been taking Motrin for his pain with mild relief. Denies any fever, chills, chest pain, shortness of breath. No other complaints. Time Seen by Provider: 06/24/17 14:04 Chief Complaint (Nursing): Upper Extremity Problem/Injury History Per: Patient History/Exam Limitations: no limitations Onset/Duration Of Symptoms: Persistent Current Symptoms Are (Timing): Still Present Quality: "Pain" Exacerbating Factor(s): Strenuous Use Of Affected Area Past Medical History Reviewed: Historical Data, Nursing Documentation, Vital Signs Vital Signs: Last Vital Signs Temp 98.9 F 06/24/17 13:54 Pulse 71 06/24/17 13:54 Resp 20 06/24/17 13:54 BP 157/74 H 06/24/17 13:54 Pulse Ox 96 06/24/17 14:54 - Medical History PMH: Asthma, Back Problems, Fibromyalgia Denies: Bronchitis, HTN, Hypercholesterolemia, Chronic Kidney Disease Surgical History: No Surg Hx Family History: States: Unknown Family Hx - Social History Hx Alcohol Use: Yes (occasional) Hx Substance Use: No - Immunization History Hx Tetanus Toxoid Vaccination: No Hx Influenza Vaccination: No Hx Pneumococcal Vaccination: No Review Of Systems Constitutional: Negative for: Fever, Chills Cardiovascular: Negative for: Chest Pain Respiratory: Negative for: Shortness of Breath Musculoskeletal: Positive for: Shoulder Pain (right) Physical Exam - Physical Exam Appears: Non-toxic Neck: Supple Extremity: No Normal ROM (decreased ROM right shoulder due to pain), Tenderness (tenderness to right anterior shoulder) Neurological/Psych: Oriented x3, Normal Speech, Normal Cognition ED Course And Treatment O2 Sat by Pulse Oximetry: 96 (RA) Pulse Ox Interpretation: Normal - Other Rad XR Right Shoulder X-Ray: Interpreted by Me, Viewed By Me Interpretation: Calcifications noted. No fractures or dislocations. Medical Decision Making Medical Decision Making: Impression: Shoulder pain Plan: -- XR Right shoulder -- Tylenol/codeine #3 1 tab PO -- Motrin 600 mg PO Time: 1453 Patient reports feeling better, pain decreased. Stable for discharge home. Disposition Counseled Patient/Family Regarding: Studies Performed, Diagnosis, Need For Followup, Rx Given - Disposition Referrals: [facility] [Outside] [facility] [place] [Outside] Disposition: HOME/ ROUTINE Disposition Time: 14:54 Condition: STABLE Additional Instructions: follow up with medical clinic in 2 days call to make an appointment take medications as prescribed return to hospital if symptoms worsens or progress Prescriptions: Acetaminophen/Codeine [Tylenol/Codeine 300 MG/30 MG] 1 tab PO Q6H PRN #12 tab PRN Reason: Pain, Severe (8-10) Naproxen [Naprosyn] 500 mg PO BID PRN #16 tab PRN Reason: Pain, Moderate (4-7) Instructions: Calcific Tendinitis (ED) Forms: Gen Discharge Inst Greek, [employer] (Greek) Print Language: MAORI - Clinical Impression Clinical Impression: Sprain - Scribe Statement The provider has reviewed the documentation as recorded by the Kimberley Beebe Provider Attestation: All medical record entries made by the Kimberley were at my direction and personally dictated by me. I have reviewed the chart and agree that the record accurately reflects my personal performance of the history, physical exam, medical decision making, and the department course for this patient. I have also personally directed, reviewed, and agree with the discharge instructions and disposition.
[2017-06-24] MEDS ORDERED: Acetaminophen-Codeine 300/30 mg Tab PO ONE (14:21)
[2017-06-24 15:38] VITALS: BP 149/79; PULSE 76; TEMP 98.1; O2SAT 98
--- NOTE | 2017-06-24 15:49 | RAD ---
PROCEDURE: Radiographs of the Right Shoulder HISTORY: pain COMPARISON: No prior. FINDINGS: BONES: . No fracture. JOINTS: . Glenohumeral and acromioclavicular mild osteoarthritis. SOFT TISSUES: Right calcific rotator cuff tendinopathy and/or calcific bursitis OTHER FINDINGS: None. IMPRESSION: Right calcific rotator cuff tendinopathy and/or calcific bursitis
== END 2017-06-24 15:10 | disposition home or self-care (01) ==
LOC: C.ER 13:51
DX: S43.401A Unspecified sprain of right shoulder joint, initial encounter (principal); X58.XXXA Exposure to other specified factors, initial encounter; M79.7 Fibromyalgia

== ENCOUNTER 2017-06-24 23:47 | Emergency (ER) | payer MEDICARE, OTHER ==
[2017-06-24 23:55] VITALS: BP 148/77; PULSE 81; TEMP 98.3
--- NOTE | 2017-06-25 00:19 | C.PDOC ---
History Of Present Illness Pt presents to ER with c/o of persistent right shoulder pain for a long time but worse for the past 4 days. Pt states he's taking percocet, diclofenac and tramadol prescribed by pain management doctor- Dr Morillo and was also seen by her yesterday for same and was given a hydrocortisone injection to the area but states no help. Pt was seen in ED earlier today and had a Rt shoulder XR and prescribed tylenol with codeine and motrin which he has not yet filled. Time Seen by Provider: 06/25/17 00:00 Chief Complaint (Nursing): Upper Extremity Problem/Injury History Per: Patient History/Exam Limitations: no limitations Current Symptoms Are (Timing): Still Present Quality: "Pain" Severity: Moderate Pain Scale Rating Of: 7 Exacerbating Factor(s): Movement Past Medical History Vital Signs: Last Vital Signs Temp 98.3 F 06/24/17 23:52 Pulse 81 06/24/17 23:52 Resp 20 06/25/17 00:21 BP 148/77 06/24/17 23:52 Pulse Ox - Medical History PMH: Asthma, Back Problems, Fibromyalgia Denies: Bronchitis, HTN, Hypercholesterolemia, Chronic Kidney Disease Family History: States: Unknown Family Hx - Social History Hx Alcohol Use: Yes (occasional) Hx Substance Use: No - Immunization History Hx Tetanus Toxoid Vaccination: No Hx Influenza Vaccination: No Hx Pneumococcal Vaccination: No Review Of Systems Musculoskeletal: Positive for: Shoulder Pain (right) Neurological: Negative for: Weakness, Numbness Physical Exam - Physical Exam Appears: Well, Non-toxic, No Acute Distress Eye(s): bilateral: Normal Inspection Neck: Normal Cardiovascular: Rhythm Regular Respiratory: Normal Breath Sounds Extremity: No Normal ROM (limited due to pain ), Tenderness (on motion and palpation), No Deformity, No Swelling Extremity: Bilateral: Atraumatic, Normal Color And Temperature Pulses: Left Radial: Normal, Right Radial: Normal Neurological/Psych: Oriented x3, Normal Motor, Normal Sensation Gait: Steady ED Course And Treatment Progress Note: Pt with h/o of chronic shoulder pain, on 5 different pain meds. [facility] checked and RX for percocet, tramadol were recently filled. Pt advised to follow up with Dr Morillo in the morning. Disposition - Disposition Referrals: Marjan Morillo MD [Non-Staff] - Disposition: HOME/ ROUTINE Disposition Time: 00:37 Condition: STABLE Instructions: Arthralgia (ED) Forms: [employer] (Kenyan) - Clinical Impression Clinical Impression: Right shoulder pain
[2017-06-25 00:22] VITALS: RESP 20
== END 2017-06-25 00:21 | disposition home or self-care (01) ==
LOC: C.ER 23:47
DX: M25.511 Pain in right shoulder (principal); M79.7 Fibromyalgia